=== PATIENT | female | born 1980 | race Caucasian/White ===

== ENCOUNTER → 2022-12-17 | Outpatient (CLI) | payer OTHER ==
--- NOTE | 2022-12-18 09:56 | Diagnostic Imaging Report ---
INDICATION: Routine screening. COMPARISON: No prior mammograms are available for comparison. TECHNIQUE: 2D and 3D bilateral screening mammography was performed with CAD. FINDINGS: Both breasts are heterogeneously dense, limiting the sensitivity of mammography. No mass or malignant-appearing microcalcifications are seen. The axillae are unremarkable. IMPRESSION: No mammographic features suspicious for malignancy are identified. ACR BI-RADS Category 1: Negative. Result letter will be mailed to the patient. Note: At least 10% of breast cancer is not imaged by mammography. Dictated by: Dictated on workstation # [id number]
== END ==
LOC: RAD 08:36
PROVIDERS: ATTEND Obstetrics & Gynecology
DX: Z12.31 Encounter for screening mammogram for malignant neoplasm of breast (principal)
CPT/HCPCS: 77063; 77067

== ENCOUNTER → 2023-01-16 | Outpatient (CLI) | payer OTHER ==
[~2023-01-16] VITALS: Ht 154.9 cm; Wt 43.0 kg
[~2023-01-16] MED LIST: CEPH500C PO; SPIR50TA4 PO
== END | disposition home or self-care (01) ==
LOC: PREOP 13:33
PROVIDERS: ATTEND Internal Medicine
DX: Z01.818 Encounter for other preprocedural examination (principal)

== ENCOUNTER 2023-01-24 08:31 | Day surgery (SDC) | payer OTHER ==
--- NOTE | 2023-01-17 09:09 | HISTORY AND PHYSICAL ---
DATE OF SERVICE: 01/24/2023 PANENDOSCOPY HISTORY AND PHYSICAL HISTORY OF PRESENT ILLNESS: The patient is a 42-year-old white female referred by Dr. King for diagnostic panendoscopy. The patient reports that on 11/22, she was sitting in her car when she nearly passed out. She wears an [employer] watch and noted that her heart rate went up to 160. Following this, she had several black tarry stools without reported abdominal pain. She denied any aspirin or nonsteroidal medication use and is on no blood thinning medication. Her only prescription medication is spironolactone 25 mg daily, she takes for dermatologic reasons. When she went to Dr. King's office a week or two later after no further symptomatic episodes, had hemoglobin of 9.8 with an MCV of 86, normal white count, normal platelet count, and differential. She reports regular periods with no change and has had no previous history of GI bleeding or peptic ulcer disease. PAST MEDICAL HISTORY: Noncontributory, again taking spironolactone for dermatologic reasons/acne. FAMILY HISTORY: Father is living with history of thyroid and prostate cancer at the age of 70. Mother living at the age 71 with no health problems. One brother alive and well, no known health problems. SOCIAL HISTORY: She teaches at [employer], has no past smoking history and rare small volume alcohol intake. REVIEW OF SYSTEMS: CONSTITUTIONAL: Denies night sweats, chills, fever or change in weight. GASTROINTESTINAL: As noted in the HPI. In addition, she has had no dysphagia, heartburn, abdominal pain or change in bowel habits. No bright red blood per rectum with several day history of melena starting in around 11/22/2022 with no subsequent episodes or reported melena. PHYSICAL EXAMINATION: GENERAL: Reveals a white female, appeared to be in no acute distress, did not have evidence for overt pallor. HEENT: Unremarkable. Heart rate 80 and regular with blood pressure 112/78, weight 93 pounds, reportedly stable. Sclerae nonicteric. CHEST: Clear to auscultation. CARDIOVASCULAR: Reveals a regular rate and rhythm without murmur, S3, or S4. ABDOMEN: Soft, supple without mass, organomegaly, or tenderness. EXTREMITIES: No cyanosis, clubbing or edema. ASSESSMENT: For further investigation of anemia with symptoms compatible with acute GI bleed, the patient was set up for panendoscopy. Prep instructions were given and questions were answered, she was advised to continue to abstain from aspirin and nonsteroidal medication in the interim. I thank you for the referral of this pleasant lady. Job ID: [id number] DocumentID: [id number] Dictated Date: 01/15/2023 15:37:33 [employer] Date: 01/15/2023 15:54:00 Dictated By: GONZALO HOFF MD
[~2023-01-24] VITALS: Ht 154.9 cm; Wt 43.0 kg
[2023-01-24] MEDS ORDERED: LACTATED RINGERS 1,000 ML IV STA (08:41)
[2023-01-24] MEDS ORDERED: HURRICAINE EXT TUBE (BENZOCAINE) XX PRN (08:45)
--- NOTE | 2023-01-24 08:54 | Pre-Op Note & Conscious Sedat ---
Pre-Operative Progress Note Date H&P Reviewed: Jan 24, 2023 Time H&P Reviewed: 08:53 History & Physical: H&P Reviewed, Patient Examed, No changes noted Pre-Op Diagnosis: GI bleed with secondary anemia Moderate Sedation PreProcedure ASA Score 2 Airway Lungs Heart ASA score ASA 1: a normal healthy patient ASA 2: a patient with a mild systemic disease (mid diabetes, controlled hypertension, obesity ASA 3: a patient with a severe systemic disease that limits activity (angina, COPD, prior Myocardial infarction) ASA 4: a patient with an incapacitating disease that is a constant threat to life (CHF, renal failure) ASA 5: a moribund patient not expected to survive 24 hrs. (ruptured aneurysm) ASA 6: a declared brain- patient whose organs are being harvested. For emergent operations, add the letter E after the classification Mallampati Classification Grade 1 Sedation Plan Analgesia, Amnesia, Plan communicated to team members, Discussed options with patient/fam, Discussed risks with patient/fam The patient is an appropriate candidate to undergo the planned procedure, sedation, and anesthesia. The patient immediately re-assessed prior to indication. GONZALO HOFF MD Jan 24, 2023 08:54
[2023-01-24 09:03] VITALS: BP 113/79
[2023-01-24] MEDS ORDERED: MIDAZOLAM 2 MG/2 ML (VERSED) VIAL ONE (09:22)
[2023-01-24] MEDS ORDERED: PROPOFOL INJECTION 50 ML IV ONE ×2 (09:22→09:39)
[2023-01-24 10:20] VITALS: BP 91/53
[2023-01-24 10:25] VITALS: BP 93/57
[2023-01-24 10:41] VITALS: BP 98/63
[2023-01-24 11:05] VITALS: BP 109/69
--- NOTE | 2023-01-24 11:34 | Progress Note-Post Operative ---
Post-Procedure Note Physician (s)/Leave Coordinator (s) Physician GONZALO HOFF MD Pre-Procedure Diagnosis Pre-Procedure Diagnosis: GI bleed with secondary anemia Post-Procedure Diagnosis Post-operative diagnosis: The endoscope was inserted into the oral cavity and under direct visitation the esophagus intubated. The scope passed down the esophagus to stomach and second portion of the duodenum. Careful suction was made as the endoscope withdrawn. Findings: The posterior pharynx epiglottis arytenoid aperture and true and false vocal folds were unremarkable to visual inspection. The proximal mid and distal esophagus is unremarkable no evidence for hiatal hernia is noted. The cardia was unremarkable. There is some teal angiectatic type blood vessels in the fundus with some loss of usual rugal folds suggesting the possibility of atrophic gastritis. Biopsies were obtained and submitted for histopathology. The antrum the pylorus pyloric channel duodenal bulb and second portion duodenum were unremarkable with normal-appearing villous architecture and no evidence for duodenitis. No evidence for angiodysplasia was identified. A/P. There are some pain angiectatic above vessels with loss of the typical rugal folds noted in the fundus of the stomach suggesting the possibility of atrophic gastritis biopsies were obtained and submitted for histopathology. No ulceration was noted no evidence for blood was noted in the upper GI tract. We then proceeded with colonoscopy. Prior to undergoing colonoscopy digital rectal evaluation was performed. Anal suture tone was normal and the perianal reflexes intact. No abnormalities noted on digital inspection of the anal canal or distal rectal vault. The colonoscope was then inserted into the rectum and under direct visitation advanced the cecum. Photographic documentation obtained. Careful inspection was made as the colonoscope was withdrawn. Quality the prep was good. Findings there are no evidence for internal or external hemorrhoids in the rectum sigmoid colon descending colon splenic flexure transverse colon hepatic flexure ascending colon and cecum were unremarkable with no potential bleeding sites being identified. A/P normal colonoscopy to the cecum. As long as her is no evidence for ongoing GI bleed would not recommend further procedure. Should the patient have recurrent bleeding issues would advocate proceeding with capsule endoscopy. I thank you for the furl this pleasant lady sincerely, Gonzalo Hoff MD. CC: GONZALO Burch MD Jan 24, 2023 11:34
--- NOTE | 2023-01-24 14:00 | Anesthesia-General Post-Op ---
MAC Patient Condition Mental Status/LOC: Same as Preop Cardiovascular: Satisfactory Nausea/Vomiting: Absent Respiratory: Satisfactory Pain: Controlled Complications: Absent Post Op Complications Complications None Follow Up Care/Instructions Patient Instructions None needed. Anesthesiology Discharge Order Discharge Order Patient is doing well, no complaints, stable vital signs, no apparent adverse anesthesia problems. No complications reported per nursing. ROX DORAN CRNA Jan 24, 2023 14:00
== END 2023-01-24 11:10 | disposition home or self-care (01) ==
LOC: ENDO 08:31
PROVIDERS: ATTEND Internal Medicine
DX: K29.51 Unspecified chronic gastritis with bleeding (principal); D64.9 Anemia, unspecified
CPT/HCPCS: 84703